=== PATIENT | male | born 1945 | race Caucasian/White ===

== ENCOUNTER 2016-09-07 17:14 | Inpatient (IN) | payer OTHER, MEDICARE ==
[~2016-09-07] VITALS: Ht 180.3 cm; Wt 77.1 kg
--- NOTE | 2016-09-07 17:25 | NUR ---
PT TO ED FOR 30 MIN OF SEVERE CHEST PRESSURE AND DIAPHORESIS, STATING HE WAS SITTING AT A LECTURE AND FELT A SUDDEN ONSET OF CHEST PRESSURE AND BEGAN TO HAVE COLD SWEATS. ON ARRIVAL TO ED CP 09/20 AND "IMPROVING" DENIES ANY ASSOCIATED SOB, ANAND. STATING HE HAS A HX OF "A VERY SLIGHT MITRAL VALVE REGURG". PT STATING HE WORKED OUT HARDER THAN NORMAL THIS AM WELL DRANK MORE ESPRESSO THAN NORMAL.
--- NOTE | 2016-09-07 17:30 | ED GENERAL ADULT ---
History of Present Illness General Chief Complaint: Chest Pain Stated Complaint: CHEST PAIN Source: patient Exam Limitations: no limitations Vital Signs & Intake/Output Vital Signs & Intake/Output Vital Signs Date Time Temp Pulse Resp B/P Pulse O2 O2 Flow FiO2 Ox Delivery Rate 09/07 2036 99.1 58 16 130/71 97 Room Air 09/07 1902 60 16 104/66 98 Room Air 09/07 1749 55 1 135/78 97 Room Air 09/07 1746 97 Room Air 09/07 1725 98.0 94 18 145/74 99 Room Air ED Intake and Output 09/08 0000 09/07 1200 Intake Total 0 Output Total Balance 0 Intake, Oral 0 Patient 160 lb Weight Allergies Coded Allergies: No Known Allergies (09/07/16) Reconcile Medications Ascorbic Acid (Vitamin C) (Unknown Strength) TABLET (Unknown Dose) PO DAILY SUPPLEMENT (Reported) Aspirin (Ecotrin*) 81 MG TABLET.DR 1 TAB PO DAILY HEART/BLOOD (Reported) Atorvastatin Calcium 20 MG TABLET 0.5 TAB PO DAILY CHOLESTEROL (Reported) Calcium Carbonate/Vitamin D3 (Calcium 500 + D Tablet) (Unknown Strength) TABLET (Unknown Dose) PO DAILY SUPPLEMENT (Reported) Gluc 2KCL/Chondr/Miguel Hy/Hy AC (Glucosamine & Chondroitin Cap) (Unknown Strength ) CAPSULE (Unknown Dose) PO BID SUPPLEMENT (Reported) Multivitamin (Daily Multiple Vitamin) 1 EACH TABLET 1 TAB PO DAILY SUPPLEMENT (Reported) Omeprazole 20 MG CAPSULE.DR 1 CAP PO DAILY GI (Reported) Triage Note: PT TO ED FOR 30 MIN OF SEVERE CHEST PRESSURE AND DIAPHORESIS, STATING HE WAS SITTING AT A LECTURE AND FELT A SUDDEN ONSET OF CHEST PRESSURE AND BEGAN TO HAVE COLD SWEATS. ON ARRIVAL TO ED CP 09/20 AND "IMPROVING" DENIES ANY ASSOCIATED SOB, ANAND. STATING HE HAS A HX OF "A VERY SLIGHT MITRAL VALVE REGURG". PT STATING HE WORKED OUT HARDER THAN NORMAL THIS AM WELL DRANK MORE ESPRESSO THAN NORMAL. Triage Nurses Notes Reviewed? yes Onset: Abrupt Duration: hour(s): Timing: recent history HPI: 6:22 PM 70-year-old man presents to the emergency department for chest pain. The patient states he was in his usual state of health until earlier today approximately one hour prior to arrival he developed epigastric pain and chest pressure. He took aspirin and antacid with no relief. He says he has a history of GERD. His said he was profoundly diaphoretic, he has no shortness of breath, no fever, no cough, no other complaints The onset of the symptoms were abrupt, the duration was approximately one hour prior to arrival, the severity is significant; as his symptoms required him to come to the emergency department for care (TORRIE MCGREGOR DO) Past History Travel History Traveled to [place] past 21 day No Medical History Any Pertinent Medical History? see below for history Neurological: BELLS PALSY, MELENOMA Surgical History Surgical History: non-contributory, HERNIA REPAIR Family History Hx Contributory? No (TORRIE MCGREGOR DO) Review of Systems Review of Systems Constitutional: Denies: fever. EENTM: Denies: visual changes. Respiratory: Denies: short of breath. Cardiovascular: Reports: chest pain. GI: Denies: abdominal pain. Genitourinary: Reports: no symptoms. Musculoskeletal: Reports: no symptoms. Skin: Reports: no symptoms. Neurological/Psychological: Reports: other (BELLS PALSY OLD). Hematologic/Endocrine: Reports: no symptoms. Immunologic/Allergic: Reports: no symptoms. (TORRIE MCGREGOR DO) Physical Exam Physical Exam General Appearance: well developed/nourished, alert, awake, anxious, mild distress Head: atraumatic, slight right-sided facial droop old Eyes: Bilateral: normal appearance, PERRL, EOMI. Ears, Nose, Throat: normal pharynx, normal ENT inspection Neck: normal inspection, supple Respiratory: chest non-tender, no respiratory distress Cardiovascular: regular rate/rhythm Peripheral Pulses: 4+ radial (R), 4+ radial (L) Gastrointestinal: soft, non-tender Back: normal range of motion Extremities: normal inspection, normal range of motion, no edema Neurologic/Psych: no motor/sensory deficits, awake, alert, oriented x 3 Skin: intact, normal color, warm/dry Core Measures ACS in differential dx? Yes ASA ordered for poss ACS? patient took 160 mg of aspirin prior to arrival CVA/TIA Diagnosis: No Severe Sepsis Present: No Septic Shock Present: No (TORRIE MCGREGOR DO) Progress Differential Diagnoses I considered the following diagnoses in my evaluation of the patient: [Acute coronary syndrome, pneumothorax, pulmonary embolism, costochondritis, gastroesophageal reflux, cholecystitis] Plan of Care: Orders Procedure Date/time Status Nothing by Mouth 09/08 B Active US-LIMITED ABDOMEN 09/08 0700 Active CBC WITHOUT DIFFERENTIAL 09/08 0600 Active BASIC ELECTROLYTES PLUS BUN&CR 09/08 0600 Active TROPONIN LEVEL 09/08 0000 Active EKG 09/08 0000 Active Nothing by Mouth 09/07 D Complete Pathway - chart 09/07 2201 Active Pathway - chart 09/07 2200 Active House Staff 09/07 220 Active Patient Data 09/07 220 Active Code Status 09/07 220 Active Patient Data 09/08 2107 Active Admit to inpatient 09/07 210 Active Vital Signs 09/07 2102 Active Code Status 09/07 2102 Complete Add-on Test (ER Only) 09/07 2025 Active EKG 09/07 1909 Active Telemetry/Jet Mechanic 09/07 1816 Active Intake & Output 09/07 1750 Active LIPID PANEL 09/07 1734 Complete LIPASE 09/07 1734 Complete AMYLASE 09/07 1734 Complete TROPONIN LEVEL 09/07 1729 Complete COMPREHENSIVE METABOLIC PANEL 09/07 1729 Complete CBC WITHOUT DIFFERENTIAL 09/07 1729 Complete EKG 09/07 1716 Active US-LIMITED ABDOMEN 09/07 UNK Active Lab Add-on Test 09/07 UNK Active VTE Mechanical Prophylaxis 09/07 UNK Active Current Medications Sig/Jamari Start time Last Medication Dose Stop Time Status Admin Enoxaparin Sodium 40 MG DAILY 09/08 1000 AC (Lovenox) Pantoprazole Sodium 40 MG DAILY 09/08 1000 AC (Protonix) Ondansetron HCl 4 MG Q6P PRN 09/07 2215 AC (Zofran) Morphine Sulfate 4 MG Q4P PRN 09/07 2200 AC (Morphine) Laboratory Tests 09/07/16 1734: Anion Gap 12, Estimated GFR > 60, BUN/Creatinine Ratio 20.9, Glucose 97, Calcium 9.4, Total Bilirubin 0.6, AST 130 H, ALT 88 H, Alkaline Phosphatase 84, Troponin I < 0.01, Total Protein 7.3, Albumin 4.4, Globulin 2.9, Albumin/ Globulin Ratio 1.5, Triglycerides 280 H, Cholesterol 168, LDL Cholesterol, Calc 66, HDL Cholesterol 46, Cholesterol/HDL Ratio 4, Amylase 984 H, Lipase 48779 H , CBC w Diff NO MAN DIFF REQ, RBC 4.59 L, MCV 95.1 H, MCH 31.0, RDW 14.5, MPV 8.5, Gran % 52.1, Lymphocytes % 37.8, Monocytes % 7.4, Eosinophils % 2.2, Basophils % 0.5, Absolute Granulocytes 5.6, Absolute Lymphocytes 4.1 H, Absolute Monocytes 0.8 H, Absolute Eosinophils 0.2, Absolute Basophils 0.1, PUBS MCHC 32.6 L 7:20 PM PATIENT SIGNED OUT TO ME BY DR MCGREGOR. PENDING CT ABDOMEN, REPEAT TROPONIN. (FELICITAS DELONG,TIP) Initial ED EKG: NSR (MECHE FRANKLIN,TORRIE Mock) Differential Diagnoses I considered the following diagnoses in my evaluation of the patient: [ PANCREATITS, MEDIACTION REACTION] Diagnostic Imaging: Viewed by Me: CT Scan. Discussed w/RAD: CT Scan. Radiology Impression: PATIENT: ORLANDO SLADE PRESENT AGE: 70 PATIENT ACCOUNT NO: [id number] : 45 LOCATION: [facility] ORDERING PHYSICIAN: TORRIE MCGREGOR DO SERVICE DATE: 09/07/16 EXAM TYPE: CAT - CT ABD & PELVIS W/O IV CONTRAS EXAMINATION: CT ABDOMEN AND PELVIS WITHOUT CONTRAST CLINICAL INFORMATION: Abdominal pain COMPARISON: None TECHNIQUE: Multidetector volumetric imaging was performed from the superior aspect of the liver through the pubic symphysis. Sagittal and coronal reformatted images were obtained on the technologist's workstation. DLP: 290.87 mGy-cm FINDINGS: LUNG BASES: The visualized lung bases are unremarkable. LIVER, GALLBLADDER, AND BILIARY TREE: The liver is normal in size, shape, and attenuation. Subtle low- attenuation noted in the segment 6 right hepatic lobe measuring approximately 0.8 cm. It is too small to be accurately characterized. (Series 2 image 22) Biliary ductal dilatation is present. The gallbladder is unremarkable with no evidence of radiopaque gallstones, gallbladder wall thickening, or obvious pericholecystic inflammatory changes. PANCREAS: Diffuse peripancreatic stranding and edema. Trace fluid. Findings are consistent with acute pancreatitis. Clinical and laboratory correlation recommended. SPLEEN: Unremarkable. ADRENAL GLANDS: Unremarkable. KIDNEYS AND URETERS: Slightly lobulated kidneys noted bilaterally. No evidence of stones. There is no hydronephrosis. BLADDER: Unremarkable. GASTROINTESTINAL TRACT: Edema and stranding also surrounding the stomach and duodenum. Colonic diverticulosis. Small hiatal hernia. Left inguinal hernia with herniated loop of distal descending colon. Herniated loop does not demonstrate abnormal wall thickness. No evidence of abnormal fluid collection associated with the herniated loop.. ABDOMINAL WALL: Left inguinal hernia containing loop of distal descending colon. LYMPH NODES: No evidence of lymphadenopathy. Small lymph nodes identified in the mesentery VASCULAR: Atherosclerotic disease of the aorta and aortic branches. PELVIC VISCERA: Unremarkable. OSSEOUS STRUCTURES: Degenerative changes bilateral hips, left greater than right. Degenerative changes lower lumbar spine. Scoliosis of the lumbar spine. Osseous lucency noted in the posterior right iliac bone adjacent to the SI joint. No obvious overlying cortical break. Differential possibility includes hemangioma. Lytic lesion cannot be entirely excluded. IMPRESSION: 1. CT findings suspicious for acute pancreatitis. Clinical and laboratory correlation recommended. No gross evidence of choledocholithiasis. Evaluation of the pancreatic parenchyma is limited without intravenous contrast enhancement. 2. Nonspecific low-attenuation right hepatic lesion may represent a small cyst. It is too small to be accurately characterized. 3. Small hiatal hernia. Left inguinal hernia containing loop of distal descending colon. No evidence of strangulation. 4. Probable bone hemangioma right posterior iliac bone. Lytic bony lesion cannot be entirely excluded. Findings were discussed with GEORGE Jackson at 8:24 PM on 09/07/2016. DICTATED BY: MARISOL FORDE MD DATE/TIME DICTATED:09/07/162015 TENNIS CAMP INSTRUCTOR:JUAN DATE/TIME TRANSCRIBED:2015 CONFIDENTIAL, DO NOT COPY WITHOUT APPROPRIATE AUTHORIZATION. < Electronically signed in Other Vendor System> SIGNED BY: MARISOL FORDE MD 09/07/162031 (TIP KANG MD) Departure Departure Disposition: STILL A PATIENT Condition: Stable Departure Forms: Customer Survey General Discharge Information Comments 09/07/16 7 PM The patient's initial troponin and EKG were normal. I discussed the case with Dr. Wade, was in agreement with the plan. We'll do 2 sets of troponins, repeat EKG. If pain free the patient may be discharged with follow-up. The patient had complained of epigastric pain and belching CT scan of the abdomen was ordered, repeat EKG was ordered. The patient was signed out to Dr. Kang for reevaluation and to follow the repeat troponin and EKG. Chest x-ray was negative PATIENT: ORLANDO SLADE PRESENT AGE: 70 PATIENT ACCOUNT NO: [id number] : 45 LOCATION: [facility] ORDERING PHYSICIAN: TORRIE MCGREGOR DO SERVICE DATE: 09/07/16-1829 EXAM TYPE: RAD - XRY-PORTABLE CHEST XRAY EXAMINATION: XR PORTABLE CHEST CLINICAL INFORMATION: Chest pain. COMPARISON: None TECHNIQUE: Portable AP view of the chest was obtained. FINDINGS: Cardiac leads overlie the chest. The lungs are well expanded. Mild elevation of the left hemidiaphragm. No consolidation, edema, or effusion. No pneumothorax. The cardiomediastinal silhouette is within normal limits. No acute osseous abnormalities. IMPRESSION: No acute pulmonary findings. DICTATED BY: JESUS BOCANEGRA MD DATE/TIME DICTATED:09/07/161857 TENNIS CAMP INSTRUCTOR:JUAN DATE/TIME TRANSCRIBED:09/07/161857 CONFIDENTIAL, DO NOT COPY WITHOUT APPROPRIATE AUTHORIZATION. <Electronically signed in Other Vendor System> SIGNED BY: JESUS BOCANEGRA MD 09/07 (TORRIE MCGREGOR DO) Departure Time of Disposition: 2102 Clinical Impression Primary Impression: Acute pancreatitis Admission Note Spoke With: JUAN DISLA MD Documentation of Exam: Documentation of any treatments & extenuating circumstances including Concerns Regarding Discharge (functional status, medication knowledge or non-compliance, living conditions, etc.) that warrant an admission rather than observation: [NPO , IV FLUIDS, PAIN CONTROL, MONITOR I/O, MONITOR ELECTROLYTES, U/S GB, GI CONSULT (ADMIT TO [facility])] (FELICITAS DELONG,TIP) Critical Care Note Critical Care Note Critical Care Time: 30-74 min (TORRIE MCGREGOR DO)
--- NOTE | 2016-09-07 17:44 | NUR ---
LABS DRAWN AND SENT LAV,SST,BLUE TOP
[2016-09-07 17:46] LABS: ABSOLUTE BASOPHIL COUNT 0.1 /CUMM (0.0-0.2); ABSOLUTE EOSINOPHIL COUNT 0.2 /CUMM (0.0-0.7); ABSOLUTE GRANULOCYTE CT 5.6 /CUMM (1.4-6.5); ABSOLUTE MONOCYTE COUNT 0.8 /CUMM (0.10-0.60); BASOPHIL % 0.5 % (0.0-2.0); EOSINOPHIL % 2.2 % (0-5); GRANULOCYTE % 52.1 % (42.2-75.2); HEMATOCRIT 43.6 % (42-52); MEAN CORPUSCULAR HGB CONC 32.6 G/DL (33.0-37.0); MEAN CORPUSCULAR VOLUME 95.1 FL (80.0-94.0); MEAN PLATELET VOLUME 8.5 FL (7.4-10.4); PLATELET COUNT 146 /CUMM (130-400); RBC DISTRIBUTION WIDTH 14.5 % (11.5-14.5); RED BLOOD CELL CT 4.59 /CUMM (4.70-6.10); WHITE BLOOD CELL COUNT 10.7 /CUMM (4.8-10.8)
[2016-09-07 17:49] LABS: ABSOLUTE LYMPH COUNT 4.1 /CUMM (1.2-3.4)
[2016-09-07] MEDS ORDERED: OMEPRAZOLE20 M2 PO (18:16)
[2016-09-07] MEDS ORDERED: VITAMIN C250 M3 PO (18:17)
[2016-09-07] MEDS ORDERED: GLUCOSAMINE &1 EAC1 PO (18:17)
[2016-09-07] MEDS ORDERED: ASPIRIN EC81 M1 PO (18:17)
[2016-09-07] MEDS ORDERED: ATORVASTATIN CA20 M1 PO (18:17)
[2016-09-07] MEDS ORDERED: DAILY MULTIPLE1 EACH PO (18:18)
[2016-09-07] MEDS ORDERED: CALCIUM 500 +1 EAC5 PO (18:18)
--- NOTE | 2016-09-07 19:04 | RADIOLOGY REPORT ---
EXAMINATION: XR PORTABLE CHEST CLINICAL INFORMATION: Chest pain. COMPARISON: None TECHNIQUE: Portable AP view of the chest was obtained. FINDINGS: Cardiac leads overlie the chest. The lungs are well expanded. Mild elevation of the left hemidiaphragm. No consolidation, edema, or effusion. No pneumothorax. The cardiomediastinal silhouette is within normal limits. No acute osseous abnormalities. IMPRESSION: No acute pulmonary findings.
--- NOTE | 2016-09-07 19:44 | NUR ---
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
--- NOTE | 2016-09-07 20:32 | CT SCAN REPORT ---
EXAMINATION: CT ABDOMEN AND PELVIS WITHOUT CONTRAST CLINICAL INFORMATION: Abdominal pain COMPARISON: None TECHNIQUE: Multidetector volumetric imaging was performed from the superior aspect of the liver through the pubic symphysis. Sagittal and coronal reformatted images were obtained on the technologist's workstation. DLP: 290.87 mGy-cm FINDINGS: LUNG BASES: The visualized lung bases are unremarkable. LIVER, GALLBLADDER, AND BILIARY TREE: The liver is normal in size, shape, and attenuation. Subtle low-attenuation noted in the segment 6 right hepatic lobe measuring approximately 0.8 cm. It is too small to be accurately characterized. (Series 2 image 22) Biliary ductal dilatation is present. The gallbladder is unremarkable with no evidence of radiopaque gallstones, gallbladder wall thickening, or obvious pericholecystic inflammatory changes. PANCREAS: Diffuse peripancreatic stranding and edema. Trace fluid. Findings are consistent with acute pancreatitis. Clinical and laboratory correlation recommended. SPLEEN: Unremarkable. ADRENAL GLANDS: Unremarkable. KIDNEYS AND URETERS: Slightly lobulated kidneys noted bilaterally. No evidence of stones. There is no hydronephrosis. BLADDER: Unremarkable. GASTROINTESTINAL TRACT: Edema and stranding also surrounding the stomach and duodenum. Colonic diverticulosis. Small hiatal hernia. Left inguinal hernia with herniated loop of distal descending colon. Herniated loop does not demonstrate abnormal wall thickness. No evidence of abnormal fluid collection associated with the herniated loop.. ABDOMINAL WALL: Left inguinal hernia containing loop of distal descending colon. LYMPH NODES: No evidence of lymphadenopathy. Small lymph nodes identified in the mesentery VASCULAR: Atherosclerotic disease of the aorta and aortic branches. PELVIC VISCERA: Unremarkable. OSSEOUS STRUCTURES: Degenerative changes bilateral hips, left greater than right. Degenerative changes lower lumbar spine. Scoliosis of the lumbar spine. Osseous lucency noted in the posterior right iliac bone adjacent to the SI joint. No obvious overlying cortical break. Differential possibility includes hemangioma. Lytic lesion cannot be entirely excluded. IMPRESSION: 1. CT findings suspicious for acute pancreatitis. Clinical and laboratory correlation recommended. No gross evidence of choledocholithiasis. Evaluation of the pancreatic parenchyma is limited without intravenous contrast enhancement. 2. Nonspecific low-attenuation right hepatic lesion may represent a small cyst. It is too small to be accurately characterized. 3. Small hiatal hernia. Left inguinal hernia containing loop of distal descending colon. No evidence of strangulation. 4. Probable bone hemangioma right posterior iliac bone. Lytic bony lesion cannot be entirely excluded. Findings were discussed with GEORGE Jackson at 8:24 PM on 09/07/2016.
--- NOTE | 2016-09-07 20:36 | NUR ---
PT CONTINUES TO C/O BELCHING WITH NO CHEST PAIN. PT STATES HIS STOMACH FEELS DISTENDED
--- NOTE | 2016-09-07 20:44 | NUR ---
PT STATES HE IS NOW EXPERIENCING PAIN AND IT IS TRAVELING LOWER IN HIS ABDOMEN
--- NOTE | 2016-09-07 21:07 | NUR ---
MEDICATED WITH 4MG MORPHINE
--- NOTE | 2016-09-07 21:25 | History & Physical ---
MARLENY DELONG,[facility] 09/07/162123: General Information and HPI MD Statement: I have seen and personally examined ORLANDO SLADE and documented this H&P. The patient is a 70 year old M who presented with a patient stated chief complaint of [chest pressure and cold sweats]. Source of Information: patient, family Exam Limitations: no limitations History of Present Illness: Patient is a 70 year old gentleman with PMH of HLD, GERD and ospteopenia, who came to the ED due to sudden onset of feeling pressure in the chest around 4:15 pm today. Patient reports he took x3 more coffee than his usual (his usual is 3 shots of espressos). 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 pain gradually progressed to the severity of 6-7/10 and lasted about total of 30 minutes. Denied nausea at that time, he took two aspirins regular doses and a dose of Pepcid Complete on his way to the hospital. His pain gradually decreased to 4/10 when he arrived in the ED. Also the location of the pain has moved down to the epigastric area. Since about 8-9 pm he also has been having nausea and reported one time vomiting, small amount, with no blood. Patient denies dizziness, SOB, palpitation, fever chills, urinary symptoms or changes in the stool. Patient reports he eats healthy food and avoids fatty meals such as burgers. He has a history of HLD on low dose Atorvastatin, his PCP wanted to take him off of it but recently he had mild elevation of TG (not know the number) and therefore he was continued on the statin. Denies heavy alcohol intake or smoking. Allergies/Medications Allergies: Coded Allergies: No Known Allergies (09/07/16) Home Med list Ascorbic Acid (Vitamin C) (Unknown Strength) TABLET (Unknown Dose) PO DAILY SUPPLEMENT (Reported) Aspirin (Ecotrin*) 81 MG TABLET. 1 TAB PO DAILY HEART/BLOOD (Reported) Atorvastatin Calcium 20 MG TABLET 0.5 TAB PO DAILY CHOLESTEROL (Reported) Calcium Carbonate/Vitamin D3 (Calcium 500 + D Tablet) (Unknown Strength) TABLET (Unknown Dose) PO DAILY SUPPLEMENT (Reported) Gluc 2KCL/Chondr/Miguel Hy/Hy AC (Glucosamine & Chondroitin Cap) (Unknown Strength ) CAPSULE (Unknown Dose) PO BID SUPPLEMENT (Reported) Multivitamin (Daily Multiple Vitamin) 1 EACH TABLET 1 TAB PO DAILY SUPPLEMENT (Reported) Omeprazole 20 MG CAPSULE. 1 CAP PO DAILY GI (Reported) Past History Travel History Traveled to [place] past 21 day No Medical History Neurological: BELLS PALSY , MELENOMA EENT: NONE Cardiovascular: hyperlipidemia Respiratory: NONE Gastrointestinal: GERD, Stoll's esophagus Hepatic: NONE Renal: NONE Musculoskeletal: hammer toe, osteopenia Psychiatric: NONE Endocrine: NONE Blood Disorders: NONE Cancer(s): NONE CHANGE MANAGEMENT/Reproductive: NONE Surgical History Surgical History: non-contributory, HERNIA REPAIR, meniscus tear of the left knee Past Family/Social History Psychosocial History Smoking Status: Never Smoked ETOH Use: occasional use Illicit Drug Use: denies illicit drug use Living Will? yes Functional Ability ADLs Independent: dressing, eating, toileting, bathing. Ambulation: independent Review of Systems Review of Systems Constitutional: Denies: chills, fever, weakness. EENTM: Denies: blurred vision. Cardiovascular: Denies: chest pain (currently no CP), edema, palpitations, peripheral edema. Respiratory: Denies: cough, short of breath, sputum production. GI: Reports: abdominal pain (epigastric). Genitourinary: Reports: no symptoms. Musculoskeletal: Reports: joint pain (occasional knee pain Left side). Skin: Reports: lesions (biopsied on the L and R chest). Neurological/Psychological: Denies: headache, numbness, weakness. Hematologic/Endocrine: Reports: no symptoms. Exam & Diagnostic Data Last 24 Hrs of Vital Signs/I&O Vital Signs Date Time Temp Pulse Resp B/P Pulse O2 O2 Flow FiO2 Ox Delivery Rate 09/07 2036 99.1 58 16 130/71 97 Room Air 09/07 1902 60 16 104/66 98 Room Air 09/07 1749 55 1 135/78 97 Room Air 09/07 1746 97 Room Air 09/07 1725 98.0 94 18 145/74 99 Room Air Physical Exam General Appearance Alert, Oriented X3, Cooperative, No Acute Distress Skin there is a papillomatous skin lesion on the left side of the chest, round and symmetric, Keloid like, from a previous biopsy, another area covered with bandage on the right side of the chest that was recently biopsied. HEENT Atraumatic, PERRLA, EOMI, Mucous Membr. 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 Neck Supple, No JVD Cardiovascular Regular Rate, Normal S1, Normal S2, 2/6 systolic murmur best heard in the aortic area Lungs Clear to Auscultation, Normal Air Movement Abdomen Soft, tenderness in the RUQ and epigaster Neurological Normal Speech, Normal Tone, right sided facial droop, hx of Betancourt's palsy Extremities No Edema, Normal Pulses Vascular Pulses Symmetrical Last 24 Hrs of Labs/Paul: Laboratory Tests 09/07/16 1734: Anion Gap 12, Estimated GFR > 60, BUN/Creatinine Ratio 20.9, Glucose 97, Calcium 9.4, Total Bilirubin 0.6, AST 130 H, ALT 88 H, Alkaline Phosphatase 84, Troponin I < 0.01, Total Protein 7.3, Albumin 4.4, Globulin 2.9, Albumin/ Globulin Ratio 1.5, Triglycerides 280 H, Cholesterol 168, LDL Cholesterol, Calc 66, HDL Cholesterol 46, Cholesterol/HDL Ratio 4, Amylase 984 H, Lipase 45458 H , CBC w Diff NO MAN DIFF REQ, RBC 4.59 L, MCV 95.1 H, MCH 31.0, RDW 14.5, MPV 8.5, Gran % 52.1, Lymphocytes % 37.8, Monocytes % 7.4, Eosinophils % 2.2, Basophils % 0.5, Absolute Granulocytes 5.6, Absolute Lymphocytes 4.1 H, Absolute Monocytes 0.8 H, Absolute Eosinophils 0.2, Absolute Basophils 0.1, PUBS MCHC 32.6 L Assessment/Plan Assessment: Patient is a 70 year old Male with a history of HLD, GERD, Stoll's esophagus, reported osteopenia, melanoma s/p excision (follows up with a activity coordinator), who came to the ED after experiencing sudden onset chest pressure and diaphoresis. Work up in the ED showed elevated amylase and lipase and an evidence of pancreatitis in the Abdominal CT scan. Patient is admitted to the [facility] floor for acute pancreatitis. problem list and plan; Chest pressure and diaphoresis Lower chest pain improved by the time patient came to the ED and pain moved down to the epigastric area. Physical exam was significant for systolic murmur in the aortic area. EKG showed sinus rythm and no acute ST and T changes. Troponin negative. * repeat troponin and EKG at midnight * consider ECHO Pancreatitis Patient reported epigastric pain and nausea later in the ED. He also reports recent history of elevated TG. Denies heavy alcohol use, smoking and eating heavy meals. Exam revealed RUQ tenderness. CT of the abdomen: Diffuse peripancreatic stranding and edema. Trace fluid. Findings are consistent with acute pancreatitis. There is edema and stranding also surrounding the stomach and duodenum. Colonic diverticulosis. Biliary ductal dilatation is present. The gallbladder is unremarkable with no evidence of radiopaque gallstones, gallbladder wall thickening, or obvious pericholecystic inflammatory changes. * Ringer's lactate * NPO * Zofran PRN for nausea * RUQ US * Repeat amylase and lipase in am HLD * repeat lipid profile * Hold statin History of GERD and Stoll's esophagus * IV protonix Pain * morphine sulfate 4 mg Q4 PRN DVT px * Lovenox FC As Ranked By This Provider Problem List: 1. Acute pancreatitis 2. Chest pain Core Measures/Miscellaneous Acute Coronary Syndrome ACS Diagnosis: No Cerebrovascular Accident CVA/TIA Diagnosis: No Congestive Heart Failure CHF Diagnosis: No Venous Thromboembolism VTE Risk Factors: Acute medical illness, Age > 40 No [facility] VTE prophylaxis d/t: No contraindications No VTE Pharm Prophylaxis d/t: No contraindications VTE Diagnosis: No VTE Type: NONE VTE Confirmed by (Test): NONE Severe Sepsis Severe Sepsis Present: No Septic Shock Septic Shock Present: No Miscellaneous Documentation Attending Case Discussed With: NIGHAT DELONG,JUAN Marmolejo Primary Care Physician: Dr. Dameon Nova Patient sees these Specialists GI: Dr. Mj Mckenzie Launch Check Out: Dr. Caldera Surgery: Dr. Piña Level of Patient Care: Telemetry KODY DELONG,[facility] 09/07/16 2348: Resident Review Statement Resident Statement: examined this patient, discussed with r d internship, agreed with r d internship Other Findings: 70 y/o M with PMH of Stoll's Esophagus (stable, last endoscopy 2 years ago), HLD, Osteopenia (last DEXA <1 yr ago), Melanoma s/p excision who presents to the ED with midsternal chest pressure, which moved lower to the abdomen. 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 He immediately rushed to the hospital because he thought he had a heart attack. He reports having 3 shots espresso x 2 , chocolate candy and a regular coffeee today, which is 3x his normal intake. The pressure came on suddenly and increased to 6/10. He took Aspirin 81 mg x2 and [address] on his way to the ED. He denies any palpitation, lightheadedness, dizziness, abdominal pain, nausea or vomiting before he came to the ED. He was diagnosed with Stoll's esophagus 5 years ago, by his facility engineer in [facility] and has been following up with him since then. He denies ETOH intake. He does have a history of hyperlipidemia and has been on a statin for that. His last lipid panel done < 1 yr ago, showed elevated TG levels and he was asked to continue his statin. In the ED, his pain migrated to his lower abdomen and he began to retch. CAT scan of the abdomen showed the presence of diffuse peripancreatic stranding and edema with trace fluid. It also showed the presence of a low attenuation lesion noted in the right hepatic lobe and no stones in the GB or obvious pericholecystic changes. Edema and stranding was also noted surrounding the stomach [place] [address]. Vitals: Afebrile, 55-94 HR, 104/66-145/74, 97-98% Physical Exam: AAOx3 S1S2, RRR BCTA Neurologically intact Abdomen: Tendernes present most in the RLQ, but also present all over the abdomen. Bowel sound sluggish. Rebound tenderness could not be assessed as the patient was not cooperative. Labs: BUN: 23, Lipase: 70135, AT: 130, ALT: 88 Imaging: CT of the abdomen and Pelvis without contrast showed: presence of diffuse peripancreatic stranding and edema with trace fluid. It also showed the presence of a low attenuation lesion noted in the right hepatic lobe and no stones in the GB or obvious pericholecystic changes. Edema and stranding was also noted surrounding the stomach and the duodenum. CXR: No Pleural effusions Patient is to be admitted to for acute pancreatitis of currently unknown etiology. BISAP score is 1. NPO for now. RL at 175 ml/hr x 5L, Morphine for pain , Zofran for nausea and Protonix IV. RUQ USG in the AM to r/o choledocholithiasis. Check Lipid panel. Repeat another trop and EKG to r/o possible cardiac related disease. DVT PPx: SubQ Lovenox. Code Status: Full Code. RONNIE PEREIRA MD 09/08/16 0855: Attending MD Review Statement Attending Statement Attending MD Statement: examined this patient, discuss w/resident/PA/ARMATURE WINDER REPAIR HELPER, agreed w/resident/PA/ARMATURE WINDER REPAIR HELPER, discussed with family, reviewed EMR data (avail), discussed with nursing
--- NOTE | 2016-09-07 21:33 | NUR ---
HOUSE STAFF AT BEDSIDE
--- NOTE | 2016-09-07 23:03 | NUR ---
BED ASSIGNMENT 204-01
--- NOTE | 2016-09-07 23:37 | NUR ---
PTS SIGNIFICAN OTHER (HARDEEP) WOULD LIKE TO BE CALLED WITH ANY AND ALL UPDATES [phone]
--- NOTE | 2016-09-07 23:58 | NUR ---
REPORT CALLED TO JODY DOMINGUEZ
[2016-09-08 00:32] VITALS: BP 138/78
--- NOTE | 2016-09-08 02:15 | NUR ---
PT ADMITTED FROM ER VIA STRECHER. ORIENTED TO ROOM, CALL JARA, STAFF, ETC. ALERT AND ORIENTED X 3. RA. NPO. DENIES PAIN. VSS. EKG AND TROPONIN DONE ORDERED. FLUIDS RUNNING. WILL CONTINUE TO MONITOR.
[2016-09-08 07:20] VITALS: BP 132/64
[2016-09-08 08:13] LABS: ABSOLUTE BASOPHIL COUNT 0 /CUMM (0.0-0.2); ABSOLUTE EOSINOPHIL COUNT 0 /CUMM (0.0-0.7); ABSOLUTE GRANULOCYTE CT 7.9 /CUMM (1.4-6.5); ABSOLUTE MONOCYTE COUNT 0.7 /CUMM (0.10-0.60); BASOPHIL % 0 % (0.0-2.0); EOSINOPHIL % 0.2 % (0-5); GRANULOCYTE % 74.3 % (42.2-75.2); HEMATOCRIT 39.1 % (42-52); MEAN CORPUSCULAR HGB 31.2 PG (27.0-31.0); MEAN CORPUSCULAR VOLUME 94.4 FL (80.0-94.0); PLATELET COUNT 114 /CUMM (130-400); RBC DISTRIBUTION WIDTH 14.5 % (11.5-14.5); RED BLOOD CELL CT 4.14 /CUMM (4.70-6.10); WHITE BLOOD CELL COUNT 10.6 /CUMM (4.8-10.8)
--- NOTE | 2016-09-08 08:52 | NUR ---
NURSING NOTE: PATIENT TO US VIA STRETCHER AT THIS TIME. NPO, A&OX3, STABLE ON ROOM AIR, DENIES PAIN AT THIS TIME. AWAIT RETURN TO FLOOR.
--- NOTE | 2016-09-08 08:55 | Admission Certification ---
Admission Certification Certification Statement - As attending physician, I certify that at the time of - admission, based on clinical presentation, severity of - symptoms, need for further diagnostic testing and - therapeutic interventions, and risk of adverse outcomes - without in-hospital treatment, in my clinical assessment, - this patient requires an acute hospital stay for a minimum - of two nights or longer. I have also considered psychsocial - factors such as support system, advanced age, financial - issues, cognitive issues, and failed out-patient treatments, - past re-admission history, safety of patient, and lack of - compliance as applicable. Specific rationale supporting this admission is: Acute pancreatitis
--- NOTE | 2016-09-08 08:55 | PN- Att Addend ---
Attending Addendum Attending Brief Note Patient complains of persistent abdominal discomfort General Appearance: Alert, No Acute Distress Skin: Grossly normal HEENT: PEERLA Neck: Supple, No JVD Cardiovascular: Regular Rate, Normal S1, Normal S2, No Murmurs Lungs: Clear to Auscultation, Normal Air Movement Abdomen: Generalized Tenderness, positive bowel sounds Neurological: Normal Speech, Strength at 5/5 X4 Ext, Cranial Nerves 3-12 NL, Reflexes 2+ Extremities: No Clubbing, No Cyanosis, No Edema Vascular: Normal Pulses Assessment 70-year-old history of dyslipidemia, GERD, osteopenia presenting with complaints of chest discomfort and sweating. Patient seldom drinks and is nonsmoker. CAT scan suggested acute pancreatitis without evidence of gallstones. He has first episode of acute pancreatitis without obvious cause. At this point ultrasound liver is pending. Plan Keep nothing by mouth Continue current IV fluids Ultrasound right upper quadrant Morphine for pain DVT prophylaxis Current Medications Sig/Jamari Start time Last Medication Dose Route Stop Time Status Admin Enoxaparin Sodium 40 MG DAILY 09/08 1000 AC 09/08 SC 0835 Hydromorphone HCl 1 MG ONCE ONE 09/07 2244 DC 09/07 IV 09/07 Hydromorphone HCl 0 .STK-MED ONE 09/07 2212 DC .ROUTE Lactated Ringer's 1,000 ML .[id number] 09/07 2214 AC 09/08 IV 09/09 0249 0339 Morphine Sulfate 4 MG Q4P PRN 09/07 2200 AC 09/08 IV 0356 Morphine Sulfate 0 .STK-MED ONE 09/07 2102 DC .ROUTE Morphine Sulfate 4 MG ONCE ONE 09/07 2100 DC 09/07 IV 09/07 2100 210 Nitroglycerin 0 .STK-MED ONE 09/07 1901 DC SL Nitroglycerin 0.4 MG ONCE ONE 09/07 1830 DC SL 09/07 1831 Ondansetron HCl 4 MG Q6P PRN 09/07 2215 AC IV Ondansetron HCl 4 MG ONCE ONE 09/07 2045 DC 09/07 IV 09/07 Ondansetron HCl 0 .STK-MED ONE 09/08 2043 DC .ROUTE Pantoprazole Sodium 40 MG DAILY 09/08 1000 AC 09/08 IV 0836 Pantoprazole Sodium 40 MG ONCE ONE 09/07 1915 DC 09/07 IV 09/07 Pantoprazole Sodium 0 .STK-MED ONE 09/08 1911 DC IV Sodium Chloride 1,000 ML ONCE ONE 09/07 1914 DC 09/07 IV 09/084 1907 Laboratory Tests 09/08 09/08 0605 0110 Chemistry Sodium (137 - 145 mmol/L) 134 L Potassium (3.5 - 5.1 mmol/L) 4.2 Chloride (98 - 107 mmol/L) 102 Carbon Dioxide (22 - 30 mmol/L) 26 Anion Gap (5 - 16) 6 BUN (9 - 20 mg/dL) 18 Creatinine (0.7 - 1.2 mg/dL) 0.8 Estimated GFR (>60 ml/min) > 60 BUN/Creatinine Ratio (7 - 25 %) 22.5 Troponin I (<0.11 ng/ml) < 0.01 Hematology CBC w Diff NO MAN DIFF REQ WBC (4.8 - 10.8 /CUMM) 10.6 RBC (4.70 - 6.10 /CUMM) 4.14 L Hgb (14.0 - 18.0 G/DL) 12.9 L Hct (42 - 52 %) 39.1 L MCV (80.0 - 94.0 FL) 94.4 H MCH (27.0 - 31.0 PG) 31.2 H RDW (11.5 - 14.5 %) 14.5 Plt Count (130 - 400 /CUMM) 114 L MPV (7.4 - 10.4 FL) 9.0 Gran % (42.2 - 75.2 %) 74.3 Lymphocytes % (20.5 - 51.1 %) 19.1 L Monocytes % (1.7 - 9.3 %) 6.4 Eosinophils % (0 - 5 %) 0.2 Basophils % (0.0 - 2.0 %) 0 L Absolute Granulocytes (1.4 - 6.5 /CUMM) 7.9 H Absolute Lymphocytes (1.2 - 3.4 /CUMM) 2.0 Absolute Monocytes (0.10 - 0.60 /CUMM) 0.7 H Absolute Eosinophils (0.0 - 0.7 /CUMM) 0 Absolute Basophils (0.0 - 0.2 /CUMM) 0 PUBS MCHC (33.0 - 37.0 G/DL) 33.0 09/07 1734 Chemistry Sodium (137 - 145 mmol/L) 141 Potassium (3.5 - 5.1 mmol/L) 3.7 Chloride (98 - 107 mmol/L) 99 Carbon Dioxide (22 - 30 mmol/L) 31 H Anion Gap (5 - 16) 12 BUN (9 - 20 mg/dL) 23 H Creatinine (0.7 - 1.2 mg/dL) 1.1 Estimated GFR (>60 ml/min) > 60 BUN/Creatinine Ratio (7 - 25 %) 20.9 Glucose (65 - 99 mg/dL) 97 Calcium (8.4 - 10.2 mg/dL) 9.4 Total Bilirubin (0.2 - 1.3 mg/dL) 0.6 AST (17 - 59 U/L) 130 H ALT (21 - 72 U/L) 88 H Alkaline Phosphatase (< 127 U/L) 84 Troponin I (<0.11 ng/ml) < 0.01 Total Protein (6.3 - 8.2 g/dL) 7.3 Albumin (3.5 - 5.0 g/dL) 4.4 Globulin (1.9 - 4.2 gm/dL) 2.9 Albumin/Globulin Ratio (1.1 - 2.2 %) 1.5 Triglycerides (<150 mg/dL) 280 H Cholesterol (< 200 MG/DL) 168 LDL Cholesterol, Calc (65 - 129 mg/dL) 66 HDL Cholesterol (40 - 60 mg/dL) 46 Cholesterol/HDL Ratio (0.00 - 4.88 %) 4 Amylase (30 - 110 U/L) 984 H Lipase (23 - 300 U/L) 35243 H Hematology CBC w Diff NO MAN DIFF REQ WBC (4.8 - 10.8 /CUMM) 10.7 RBC (4.70 - 6.10 /CUMM) 4.59 L Hgb (14.0 - 18.0 G/DL) 14.2 Hct (42 - 52 %) 43.6 MCV (80.0 - 94.0 FL) 95.1 H MCH (27.0 - 31.0 PG) 31.0 RDW (11.5 - 14.5 %) 14.5 Plt Count (130 - 400 /CUMM) 146 MPV (7.4 - 10.4 FL) 8.5 Gran % (42.2 - 75.2 %) 52.1 Lymphocytes % (20.5 - 51.1 %) 37.8 Monocytes % (1.7 - 9.3 %) 7.4 Eosinophils % (0 - 5 %) 2.2 Basophils % (0.0 - 2.0 %) 0.5 Absolute Granulocytes (1.4 - 6.5 /CUMM) 5.6 Absolute Lymphocytes (1.2 - 3.4 /CUMM) 4.1 H Absolute Monocytes (0.10 - 0.60 /CUMM) 0.8 H Absolute Eosinophils (0.0 - 0.7 /CUMM) 0.2 Absolute Basophils (0.0 - 0.2 /CUMM) 0.1 PUBS MCHC (33.0 - 37.0 G/DL) 32.6 L Vital Signs Date Time Temp Pulse Resp B/P Pulse O2 O2 Flow FiO2 Ox Delivery Rate 09/08 0720 98.5 69 18 132/64 97 Room Air 09/08 0032 98.7 68 18 138/78 96 Room Air 09/07 2037 99.1 58 16 130/71 97 Room Air 09/07 1902 60 16 104/66 98 Room Air 09/07 1749 55 1 135/78 97 Room Air 09/07 1746 97 Room Air 09/07 1725 98.0 94 18 145/74 99 Room Air
--- NOTE | 2016-09-08 09:35 | NUR ---
NURSING NOTE: PATIENT RETURNED TO ROOM AND SETTLED INTO BED. A&OX3, COMPLAINS OF "SINUS HEADACHE" AND DOES NOT WANT THE PRN MORHPINE ORDERED. CHAIR INSTALLER PAGED AND MADE AWARE; PATIENT UPDATED, NEEDS IN REACH. CONT TO MONITOR.
--- NOTE | 2016-09-08 10:17 | NUR ---
NURSING NOTE: TOOTH POLISHER TO DISCUSS WITH ATTENDING ON PAIN MED FOR SINUS PRESSURE, PT AND UPDATED, CONT TO GILMA
--- NOTE | 2016-09-08 11:05 | PN- Housestaff ---
Subjective Follow-up For: Pancreatitis Subjective: Patient is seen and examined bedside. Patient reports improvement by denying any overnight episode of nausea or vomiting, fever, chills or abdominal pain. No acute overnight event reported by nursing staff. Review of Systems Constitutional: Reports: no symptoms. Objective Last 24 Hrs of Vital Signs/I&O Vital Signs Date Time Temp Pulse Resp B/P Pulse O2 O2 Flow FiO2 Ox Delivery Rate 09/08 1418 98.4 62 18 140/84 95 Room Air 09/08 0720 98.5 69 18 132/64 97 Room Air 09/08 0032 98.7 68 18 138/78 96 Room Air 09/07 2037 99.1 58 16 130/71 97 Room Air 09/07 1902 60 16 104/66 98 Room Air 09/07 1749 55 1 135/78 97 Room Air 09/07 1746 97 Room Air Intake & Output 09/08 1600 09/08 0800 09/08 0000 Intake Total 1430 1225 0 Output Total 600 Balance 830 1225 0 Intake, IV 1430 1225 Intake, Oral 0 0 Number 0 Bowel Movements Output, Urine 600 Patient 77.111 kg 77.111 kg 72.575 kg Weight Physical Exam General Appearance: Alert, Oriented X3, Cooperative Assessment/Plan Assessment: Patient is a 70 year old Male with a history of HLD, GERD, Stoll's esophagus, reported osteopenia, melanoma s/p excision (follows up with a data processing clerk), who came to the ED after experiencing sudden onset chest pressure and diaphoresis. Work up in the ED showed elevated amylase and lipase and an evidence of pancreatitis in the Abdominal CT scan. Patient is admitted to the GM floor for acute pancreatitis. Assessment and plan Pancreatitis She presented with epigastric pain and had laboratory finding of markedly increased lipase and CT abdomen was remarkable for inflammatory changes on the pancreas. Patient is not an alcoholic and therefore possibility of gallstones was entertained with a right upper quadrant scan. However results were unremarkable therefore currently the etiology is unknown. We'll continue to have patient nothing by mouth with aggressive hydration and trend lipase will reevaluate tomorrow morning and consider slowly transitioning patient to a clear liquid diet. HLD * repeat lipid profile * Hold statin History of GERD and Stoll's esophagus * IV protonix Problem List: 1. Acute pancreatitis 2. Chest pain Pain Ratin Pain Location: None Pain Goal: Pain 4 or less Pain Plan: Per pain pathway Tomorrow's Labs & Rationales: Lipase-acute pancreatitis
--- NOTE | 2016-09-08 11:13 | ULTRASOUND REPORT ---
EXAMINATION: US ABDOMEN LIMITED CLINICAL INFORMATION: Acute pancreatitis with question of CBD stone. COMPARISON: CT scan yesterday. TECHNIQUE: Real-time imaging of the right upper quadrant abdominal viscera. FINDINGS: PANCREAS: The stranding and edema appreciated on yesterday's CT scan is not as evident on ultrasound. No pancreatic mass or pancreatic duct dilatation is seen. No peripancreatic fluid collections are seen. LIVER: The liver demonstrates normal size, contour and echogenicity. A small septated 1 cm hepatic cyst is noted. No focal solid lesion or intrahepatic biliary duct dilatation. GALLBLADDER: The gallbladder wall is 4 mm thick. No pericholecystic fluid collection is seen. The patient is not tender over the gallbladder. COMMON BILE DUCT: Normal in caliber measuring 0.32 cm in diameter. RIGHT KIDNEY: No hydronephrosis. No renal calculi or focal parenchymal lesions. The kidney measures 11.6 cm in maximum dimension. FREE FLUID: None. IMPRESSION: No peripancreatic fluid collection is seen. There is no cholelithiasis. There is no biliary ductal dilatation or common duct stone seen. Incidental note made of tiny hepatic cyst.
[2016-09-08 14:18] VITALS: BP 140/84
[2016-09-08 23:41] VITALS: BP 130/78
[2016-09-09 07:33] VITALS: BP 127/74
[2016-09-09 07:54] LABS: ABSOLUTE BASOPHIL COUNT 0 /CUMM (0.0-0.2); ABSOLUTE EOSINOPHIL COUNT 0.1 /CUMM (0.0-0.7); ABSOLUTE GRANULOCYTE CT 6.3 /CUMM (1.4-6.5); ABSOLUTE LYMPH COUNT 2.4 /CUMM (1.2-3.4); ABSOLUTE MONOCYTE COUNT 0.7 /CUMM (0.10-0.60); BASOPHIL % 0 % (0.0-2.0); EOSINOPHIL % 1.6 % (0-5); GRANULOCYTE % 66.3 % (42.2-75.2); HEMATOCRIT 38.9 % (42-52); MEAN CORPUSCULAR HGB 31.3 PG (27.0-31.0); MEAN CORPUSCULAR HGB CONC 32.9 G/DL (33.0-37.0); MEAN CORPUSCULAR VOLUME 95.1 FL (80.0-94.0); MEAN PLATELET VOLUME 9.4 FL (7.4-10.4); PLATELET COUNT 115 /CUMM (130-400); RBC DISTRIBUTION WIDTH 14.5 % (11.5-14.5); RED BLOOD CELL CT 4.09 /CUMM (4.70-6.10); WHITE BLOOD CELL COUNT 9.5 /CUMM (4.8-10.8)
--- NOTE | 2016-09-09 08:06 | PN- Housestaff ---
Subjective Follow-up For: Acute pancreatitis Subjective: Patient is seen and examined at bedside. Patient reports good improvement of her symptoms which included nausea and abdominal pain, he does not report any vomiting episodes. Patient is still on IV hydration and is reporting adequate output. He does deny any chest pain, palpitation, shortness of breath, dizziness, fever, chills, nausea, vomiting, abdominal pain or dysuria. No acute overnight event reported by nursing staff Review of Systems Constitutional: Reports: no symptoms. Objective Last 24 Hrs of Vital Signs/I&O Vital Signs Date Time Temp Pulse Resp B/P Pulse O2 O2 Flow FiO2 Ox Delivery Rate 09/09 1404 98.1 65 18 125/74 94 Room Air 09/09 0733 98.7 64 18 127/74 94 Room Air 09/08 2341 99.2 64 18 130/78 95 Room Air Intake & Output 09/09 1600 09/09 0800 09/09 0000 Intake Total 1400 1400 Output Total Balance 1400 1400 Intake, IV 1400 1400 Intake, Oral 0 0 Number 0 Bowel Movements Physical Exam General Appearance: Alert, Oriented X3, Cooperative Skin: No Significant Lesion HEENT: Atraumatic, Mucous Membr. 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 Work up in the ED showed elevated amylase and lipase and an evidence of pancreatitis in the Abdominal CT scan. Patient is admitted to the [facility] floor for acute pancreatitis. Assessment and plan Pancreatitis MarkeD improvement in symptoms with no reported nausea or vomiting for more than 24 hours. Diet advanced to clear liquids for lunch with patient reporting tolerating well with no episodes of nausea vomiting. Will advance diet to full liquids for dinner and decrease fluid resuscitation to 100 miles an hour for now. Ultrasound was unremarkable for any biliary pathology, therefore currently patient episode of acute pancreatitis has unclear etiology/ HLD * Hold statin the setting of elevated LFTs. History of GERD and Stoll's esophagus * IV protonix Problem List: 1. Acute pancreatitis Pain Ratin Pain Location: none Pain Goal: Remain pain free Pain Plan: per pain pathway Tomorrow's Labs & Rationales: BEP Tomorrow's Labs & Rationales: BEP
--- NOTE | 2016-09-09 09:03 | PN- Att Addend ---
Attending Addendum Attending Brief Note Patient reports improved abdominal discomfort General Appearance: Alert, No Acute Distress Skin: Grossly normal HEENT: PEERLA Neck: Supple, No JVD Cardiovascular: Regular Rate, Normal S1, Normal S2, No Murmurs Lungs: Clear to Auscultation, Normal Air Movement Abdomen: Generalized Tenderness, positive bowel sounds Neurological: Normal Speech, Strength at 5/5 X4 Ext, Cranial Nerves 3-12 NL, Reflexes 2+ Extremities: No Clubbing, No Cyanosis, No Edema Vascular: Normal Pulses Assessment 70-year-old history of dyslipidemia, GERD, osteopenia presenting with complaints of chest discomfort and sweating. Patient seldom drinks and is nonsmoker. CAT scan suggested acute pancreatitis without evidence of gallstones. He has his first episode of acute pancreatitis without obvious cause. Ultrasound right upper quadrant conforms no gallstones or dilated CBD. However patient has improved clinically and we will advance diet. Plan Start clears, advance to full liquids later today if patient tolerates Decrease IV fluids to 100 mL Morphine for pain DVT prophylaxis Current Medications Sig/Jamari Start time Last Medication Dose Route Stop Time Status Admin Enoxaparin Sodium 40 MG DAILY 09/08 1000 AC 09/08 SC 0835 Lactated Ringer's 1,000 ML .Q8H 09/07 2215 AC 09/09 IV 09/10 0723 0829 Morphine Sulfate 4 MG Q4P PRN 09/07 2200 AC 09/08 IV 0356 Ondansetron HCl 4 MG Q6P PRN 09/07 2215 AC IV Pantoprazole Sodium 40 MG DAILY 09/08 1000 AC 09/08 IV 0836 Patient Medication 1 ED .STK-MED ONE 09/08 1352 NC Teaching ED 09/08 1353 Tramadol HCl 50 MG ONCE ONE 09/08 1115 DC 09/08 PO 09/08 1116 1219 Laboratory Tests 09/09 0615 Chemistry Sodium (137 - 145 mmol/L) 137 Potassium (3.5 - 5.1 mmol/L) 3.7 Chloride (98 - 107 mmol/L) 101 Carbon Dioxide (22 - 30 mmol/L) 29 Anion Gap (5 - 16) 7 BUN (9 - 20 mg/dL) 10 Creatinine (0.7 - 1.2 mg/dL) 0.8 Estimated GFR (>60 ml/min) > 60 BUN/Creatinine Ratio (7 - 25 %) 12.5 Lipase (23 - 300 U/L) 1405 H Hematology CBC w Diff NO MAN DIFF REQ WBC (4.8 - 10.8 /CUMM) 9.5 RBC (4.70 - 6.10 /CUMM) 4.09 L Hgb (14.0 - 18.0 G/DL) 12.8 L Hct (42 - 52 %) 38.9 L MCV (80.0 - 94.0 FL) 95.1 H MCH (27.0 - 31.0 PG) 31.3 H RDW (11.5 - 14.5 %) 14.5 Plt Count (130 - 400 /CUMM) 115 L MPV (7.4 - 10.4 FL) 9.4 Gran % (42.2 - 75.2 %) 66.3 Lymphocytes % (20.5 - 51.1 %) 24.8 Monocytes % (1.7 - 9.3 %) 7.3 Eosinophils % (0 - 5 %) 1.6 Basophils % (0.0 - 2.0 %) 0 L Absolute Granulocytes (1.4 - 6.5 /CUMM) 6.3 Absolute Lymphocytes (1.2 - 3.4 /CUMM) 2.4 Absolute Monocytes (0.10 - 0.60 /CUMM) 0.7 H Absolute Eosinophils (0.0 - 0.7 /CUMM) 0.1 Absolute Basophils (0.0 - 0.2 /CUMM) 0 PUBS MCHC (33.0 - 37.0 G/DL) 32.9 L Vital Signs Date Time Temp Pulse Resp B/P Pulse O2 O2 Flow FiO2 Ox Delivery Rate 09/09 0733 98.7 64 18 127/74 94 Room Air 09/08 2341 99.2 64 18 130/78 95 Room Air 09/08 1418 98.4 62 18 140/84 95 Room Air
[2016-09-09 14:04] VITALS: BP 125/74
[2016-09-09 22:06] VITALS: BP 130/07
[2016-09-10 06:19] VITALS: BP 136/80
--- NOTE | 2016-09-10 07:39 | PN- Housestaff ---
Subjective Follow-up For: Acute pancreatitis Subjective: Patient is seen and examined at bedside. He is endorsing some mild diffuse abdominal pressure. However he denies any nausea, vomiting, and reports passing flatus, but no bowel movement yet. He does deny any chest pain, shortness of breath, dizziness, fever, chills, or dysuria. No acute overnight event reported by nursing staff. Review of Systems Constitutional: Reports: no symptoms. Objective Last 24 Hrs of Vital Signs/I&O .. Physical Exam General Appearance: Alert, Oriented X3, Cooperative Abdomen: Normal Bowel Sounds, Soft, No Tenderness, No Hepatospenomegaly, No Masses Current Medications: .. Last 24 Hrs of Lab/Paul Results Last 24 Hrs of Labs/Mics: ... 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 Work up in the ED showed elevated amylase and lipase and an evidence of pancreatitis in the Abdominal CT scan. Patient is admitted to the [facility] floor for acute pancreatitis. Assessment and plan Pancreatitis MarkeD improvement in symptoms with no reported nausea or vomiting for more than 24 hours. Diet advanced to clear liquids for lunch with patient reporting tolerating well with no episodes of nausea vomiting. Will advance diet to full liquids for dinner and decrease fluid resuscitation to 100 miles an hour for now. Ultrasound was unremarkable for any biliary pathology, therefore currently patient episode of acute pancreatitis has unclear etiology/ HLD * Hold statin the setting of elevated LFTs. History of GERD and Stoll's esophagus * IV protonix Problem List: 1. Acute pancreatitis Pain Ratin Pain Location: abdomen Pain Goal: Remain pain free Pain Plan: per pain pathway Tomorrow's Labs & Rationales: alisa-discharge
[2016-09-10 08:44] LABS: ABSOLUTE BASOPHIL COUNT 0 /CUMM (0.0-0.2); ABSOLUTE EOSINOPHIL COUNT 0.2 /CUMM (0.0-0.7); ABSOLUTE GRANULOCYTE CT 5.2 /CUMM (1.4-6.5); ABSOLUTE LYMPH COUNT 2.6 /CUMM (1.2-3.4); BASOPHIL % 0.3 % (0.0-2.0); EOSINOPHIL % 2.5 % (0-5); GRANULOCYTE % 57.6 % (42.2-75.2); HEMATOCRIT 38.6 % (42-52); MEAN CORPUSCULAR HGB 31.5 PG (27.0-31.0); MEAN CORPUSCULAR HGB CONC 33.2 G/DL (33.0-37.0); MEAN CORPUSCULAR VOLUME 95.1 FL (80.0-94.0); MEAN PLATELET VOLUME 9.4 FL (7.4-10.4); PLATELET COUNT 114 /CUMM (130-400); RBC DISTRIBUTION WIDTH 14.2 % (11.5-14.5); RED BLOOD CELL CT 4.06 /CUMM (4.70-6.10)
--- NOTE | 2016-09-10 09:39 | PN- Att Addend ---
Attending Addendum Attending Brief Note Patient reports abdominal discomfort this morning and relates it to constipation General Appearance: Alert, No Acute Distress Skin: Grossly normal HEENT: PEERLA Neck: Supple, No JVD Cardiovascular: Regular Rate, Normal S1, Normal S2, No Murmurs Lungs: Clear to Auscultation, Normal Air Movement Abdomen: Generalized Tenderness, positive bowel sounds Neurological: Normal Speech, Strength at 5/5 X4 Ext, Cranial Nerves 3-12 NL, Reflexes 2+ Extremities: No Clubbing, No Cyanosis, No Edema Vascular: Normal Pulses Assessment 70-year-old history of dyslipidemia, GERD, osteopenia presenting with complaints of chest discomfort and sweating. Patient seldom drinks and is nonsmoker. CAT scan suggested acute pancreatitis without evidence of gallstones. He has his first episode of acute pancreatitis without obvious cause. Ultrasound right upper quadrant conforms no gallstones or dilated CBD. Diet now advanced on full liquids. Has some abdominal discomfort might be secondary to constipation. We will continue full liquids and possibly discharge later today if tolerating diet without much worsening of abdominal pain. Plan Advance diet as tolerated Discontinue fluids Discontinue pain meds Colace for constipation May discharge later today if tolerating diet Current Medications Sig/Jamari Start time Last Medication Dose Route Stop Time Status Admin Enoxaparin Sodium 40 MG DAILY 09/08 1000 AC 09/10 SC 0753 Lactated Ringer's 1,000 ML .Q10H 09/07 2215 DC 09/10 IV 09/10 0723 0021 Morphine Sulfate 4 MG Q4P PRN 09/07 2200 AC 09/08 IV 0356 Ondansetron HCl 4 MG Q6P PRN 09/07 2215 AC IV Pantoprazole Sodium 40 MG DAILY 09/08 1000 AC 09/10 IV 0753 Laboratory Tests 09/10 0615 Chemistry Sodium (137 - 145 mmol/L) 136 L Potassium (3.5 - 5.1 mmol/L) 3.6 Chloride (98 - 107 mmol/L) 103 Carbon Dioxide (22 - 30 mmol/L) 28 Anion Gap (5 - 16) 5 BUN (9 - 20 mg/dL) 10 Creatinine (0.7 - 1.2 mg/dL) 0.8 Estimated GFR (>60 ml/min) > 60 BUN/Creatinine Ratio (7 - 25 %) 12.5 Hematology CBC w Diff NO MAN DIFF REQ WBC (4.8 - 10.8 /CUMM) 9.0 RBC (4.70 - 6.10 /CUMM) 4.06 L Hgb (14.0 - 18.0 G/DL) 12.8 L Hct (42 - 52 %) 38.6 L MCV (80.0 - 94.0 FL) 95.1 H MCH (27.0 - 31.0 PG) 31.5 H RDW (11.5 - 14.5 %) 14.2 Plt Count (130 - 400 /CUMM) 114 L MPV (7.4 - 10.4 FL) 9.4 Gran % (42.2 - 75.2 %) 57.6 Lymphocytes % (20.5 - 51.1 %) 29.0 Monocytes % (1.7 - 9.3 %) 10.6 H Eosinophils % (0 - 5 %) 2.5 Basophils % (0.0 - 2.0 %) 0.3 Absolute Granulocytes (1.4 - 6.5 /CUMM) 5.2 Absolute Lymphocytes (1.2 - 3.4 /CUMM) 2.6 Absolute Monocytes (0.10 - 0.60 /CUMM) 1.0 H Absolute Eosinophils (0.0 - 0.7 /CUMM) 0.2 Absolute Basophils (0.0 - 0.2 /CUMM) 0 PUBS MCHC (33.0 - 37.0 G/DL) 33.2 Vital Signs Date Time Temp Pulse Resp B/P Pulse O2 O2 Flow FiO2 Ox Delivery Rate 09/10 0619 98.6 66 18 136/80 94 Room Air 09/094 62 09/09 2206 99.0 45 18 130/07 91 09/09 1404 98.1 65 18 125/74 94 Room Air
[2016-09-10 13:49] VITALS: BP 136/84
--- NOTE | 2016-09-10 14:03 | Patient Discharge Instructions ---
Discharge Instructions General Discharge Information You were seen/treated for: Acute pancreatitis Special Instructions: Please continue a full liquid diet for about 1 week, and then check with her primary care physician (Dr Barajas) when to advance diet. Please seek immediate medical attention if he develops increased stomach pain, fevers, or vomiting. Please follow-up with her primary care physician within one week Please hold off on the cholesterol medication until you see your primary care physician (Dr Barajas) Diet Recommended Diet: Full Liquids, Low Fat Activity Full Activity/No Limits: Yes Acute Coronary Syndrome Inclusion Criteria At DC or during hospital stay patient has or had the following: ACS DIAGNOSIS No Discharge Core Measures Meds if any: Prescribed or Continued at Discharge Meds if any: NOT Prescribed or Continued at Discharge Congestive Heart Failure Inclusion Criteria At DC or during hospital stay patient has or had the following: CHF DIAGNOSIS No Discharge Core Measures Meds if any: Prescribed or Continued at Discharge Meds if any: NOT Prescribed or Continued at Discharge Cerebrovascular accident Inclusion Criteria At DC or during hospital stay patient has or had the following: CVA/TIA Diagnosis No Discharge Core Measures Meds if any: Prescribed or Continued at Discharge Meds if any: NOT Prescribed or Continued at Discharge Venous thromboembolism Inclusion Criteria VTE Diagnosis No VTE Type NONE VTE Confirmed by (Test) NONE Discharge Core Measures - Per Current guidelines, there needs to be overlap - treatment for the first 5 days of Warfarin therapy. - If discharged on Warfarin prior to 5 days of - overlap therapy, the patient will need to be - assessed for post discharge needs including - *Post discharge parental anticoagulation - *Warfarin and/or parental anticoagulation education - *Follow up date to check INR post discharge At least 5 days overlap therapy as Inpatient No Meds if any: Prescribed or Continued at Discharge Note: Overlap Therapy is Warfarin and Anticoagulant Meds if any: NOT Prescribed or Continued at Discharge
--- NOTE | 2016-09-29 15:02 | Discharge Summary ---
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 Work up in the ED showed elevated amylase and lipase and an evidence of pancreatitis in the Abdominal CT scan. 1. Pancreatitis Patient seldom drinks and is nonsmoker. CAT scan suggested acute pancreatitis without evidence of gallstones. Ultrasound right upper quadrant confirmed no gallstones or dilated CBD. This was his first episode of acute pancreatitis without obvious cause. His symptoms improved with treatment on pancreatitis protocol includg nothing by mouth and IV fluids. 2. Dyslipidemia Statins held for elevated LFTs. he must have a repeat liver function test as outpatient and his statin may be then resumed as outpatient. Allergies: Coded Allergies: No Known Allergies (09/07/16) Significant Procedures: CAT scan abdomen and pelvis IMPRESSION: 1. CT findings suspicious for acute pancreatitis. Clinical and laboratory correlation recommended. No gross evidence of choledocholithiasis. Evaluation of the pancreatic parenchyma is limited without intravenous contrast enhancement. 2. Nonspecific low-attenuation right hepatic lesion may represent a small cyst. It is too small to be accurately characterized. 3. Small hiatal hernia. Left inguinal hernia containing loop of distal descending colon. No evidence of strangulation. 4. Probable bone hemangioma right posterior iliac bone. Lytic bony lesion cannot be entirely excluded. Disposition Summary Disposition Principal Diagnosis: Acute pancreatitis of no clear etiology Additional Diagnosis: elevated LFTs Discharge Disposition: home or self care Discharge Instructions General Discharge Information Code Status: Full Code Patient's Diet: low-fat diet Patient's Activity: as tolerated Follow-Up Instructions/Appts: Follow-up liver function test in 2 weeks. Medications at Discharge Discharge Medications: Stop taking the following medications: Atorvastatin Calcium (Atorvastatin Calcium) 20 MG TABLET ORAL DAILY Qty = 90 Continue taking these medications: Omeprazole (Omeprazole) 20 MG CAPSULE.DR Smart Capsule ORAL DAILY Qty = 90 Comments: PROTONIX IV GIVEN 09/10/16 0800AM Aspirin (Ecotrin*) 81 MG TABLET.DR Smart Tablet ORAL DAILY Comments: NOT GIVEN IN HOSPITAL Gluc 2KCL/Chondr/Miguel Hy/Hy AC (Glucosamine & Chondroitin Cap) (Unknown Strength ) CAPSULE 1 Tablet ORAL TWICE DAILY Comments: NOT GIVEN IN HOSPITAL Ascorbic Acid (Vitamin C) (Unknown Strength) TABLET 1 Tablet ORAL DAILY Comments: NOT GIVEN IN HOSPITAL Calcium Carbonate/Vitamin D3 (Calcium 500 + D Tablet) (Unknown Strength) TABLET 1 Tablet ORAL DAILY Comments: NOT GIVEN IN HOSPITAL Multivitamin (Daily Multiple Vitamin) 1 EACH TABLET 1 Tablet ORAL DAILY Comments: NOT GIVEN IN HOSPITAL Copies To: NIGHAT DELONG,JUAN Marmolejo Attending MD Review Statement Documenting Attending: RONNIE PEREIRA MD
[2016-10-28] MEDS ORDERED: ATORVASTATIN CA10 M1 PO (08:00)
== END 2016-09-10 15:25 | DRG 440 ==
LOC: ENRESERVTM → ENRESERVDT → ERH 17:14 → 2NB 21:03 → ERHI 21:03 → 2NB 21:03
PROVIDERS: Internal Medicine; Physician Assistant Medical; Student in an Organized Health Care Education/Training Program; ADMIT Internal Medicine
DX: K85.90 Acute pancreatitis without necrosis or infection, unspecified (principal); K22.70 Barrett's esophagus without dysplasia; K21.9 Gastro-esophageal reflux disease without esophagitis; G51.0 Bell's palsy; E78.5 Hyperlipidemia, unspecified; M85.80 Other specified disorders of bone density and structure, unspecified site
CPT/HCPCS: 2NBSP; ERO; 36415; 74176; 82436; 93005; 93010; 96374; 96375; J1650; J2405; J3490; J7120

== ENCOUNTER → 2016-10-29 | Day surgery (SDC) | payer OTHER, MEDICARE ==
[~2016-10-29] VITALS: Ht 180.3 cm; Wt 76.2 kg
[~2016-10-29] MED LIST: ASPIRIN EC81 M1 PO; ATORVASTATIN CA10 M1 PO; ATORVASTATIN CA20 M1 PO; CALCIUM 500 +1 EAC5 PO; DAILY MULTIPLE1 EACH PO; GLUCOSAMINE &1 EAC1 PO; OMEPRAZOLE20 M2 PO; VITAMIN C250 M3 PO
--- NOTE | 2016-11-01 14:28 | Operative Report ---
Operative/Inv Procedure Report Surgery Date: 10/29/16 Name of Procedure: Laparoscopic cholecystectomy and Laparoscopic preperitoneal mesh repair of left inguinal hernia Pre-Operative Diagnosis: Symptomatic gallstones, (gallstone pancreatitis) and left inguinal hernia Post-Operative Diagnosis: Same Estimated Blood Loss: scant Surgeon/Citrus Picker: ALONSO DELONG,YONI VAZQUEZ Anesthesia: general endotracheal tube Operative/Procedure Note Note: Patient was positioned supine. After successful induction of general anesthesia, the patient's abdomen was clipped, prepped and draped in the usual sterile fashion. Local anesthetic was injected at the top of the umbilicus and then a curved horizontal incision little over a centimeter was made there with a 15 blade and then deepened to the midline fascia which was incised vertically a little over a centimeter. Both sides were secured with 0 Vicryl stay sutures and then the thin peritoneal layer was entered, 10 mm Fernandez trocar inserted obliquely to the right, and the gas was turned on to 15 mm. After insufflation and repositioning to reverse Trendelenburg, 3 more dissecting 5 mm trochars were placed in the right subcostal area, first lateral, then mid-subcostal, then subxiphoid. The gallbladder fundus was grasped from the lateral port and retracted up over the edge of the liver, though initially limited by extensive adhesions mostly around the infundibulum from the pancreatitis, and then we dissected out the area of the triangle of Calot while retracting the infundibulum caudally / laterally. First the cystic duct was identified, isolated at the neck, clipped 3 times, divided after the second clip and then in similar fashion the cystic artery was identified medially, dissected and divided. Then the gallbladder was from the liver bed using cautery then lowered into an Endobag and removed through the umbilical incision. There was no obvious spillage of bile so we decided to proceed with hernia repair. The instruments and then the trochars were removed letting the gas escape, except we left one 5 mm trocar in, the subxiphoid one, pulling it back a little, to vent. The fascial incision was closed with a figure 8 Vicryl then the 3 skin incisions were closed with interrupted subcuticular 4-0 Monocryl. The inguinal and surrounding areas were already clipped prepped and draped in the usual sterile fashion. After injection of local anesthetic at the bottom of the umbilicus off the midline to the left, a 1 1/2 cm curved incision was made with a 15 blade, then deepened through Rosa's fascia, sweeping off the rectus sheath. A horizontal 1-1/2 cm incision was made between the fibers, elevating these edges with 0 Vicryl stay sutures. Then retracting the muscle laterally, clearing off the posterior rectus sheath, this space is developed down the midline to the pubis sequentially, with an S retractor, a peanut dissector, then the balloon-camera device, inflating it 30-40 pumps while watching how it opens up the space, keeping the epigastrics up. The balloon is then replaced with a 10 mm Fernandez trocar, inserted, shortened, and secured with the stay sutures, gas turned on to 12 not 15 mm. Then two 5 mm trochars are inserted in the midline just below the camera, spaced by approximately 3 cm. Using mostly blunt dissection with peanuts to define the anatomy, first Aman's ligament is swept off medially, checking the medial spaces, direct and femoral. There were no hernias there. Then briefly skipping over the area of the iliac fat pad, we developed the iliopubic tract out laterally to the iliac crest. Then we returned to the area of the fat pad where the hernia sac and the cord structures are adherent, coursing up into an attenuated deep ring. The cord structures form a triangle with the vas approaching medially and the main vessels approaching laterally, with the apex at the deep ring. There was some preperitoneal fat up inside in front that was dragged down and out, helping identify the distal lip of the hernia sac, which is then carefully peeled off the cord structures, especially the vas. The cord is also from the underlying iliac fat. Once the hernia sac is from the cord structures down to the base of this "triangle," a Parietex sided mesh with the suture, is marked and stuffed down the camera trocar, then unfurled in a systematic fashion , first with the smaller leaflet passing behind the cord structures, until the flap covers the epigastrics, covering the deep ring, then the larger leaflet is released from the suture, double-covering the smaller one, but also extends laterally out to the iliac crest, medially over Aman's ligament, and superiorly towards the camera. There is a third part of the mesh, that covers the iliac fat pad like a skirt. The mesh was adjusted back and forth so that the keyhole is centered around the cord, lays flat and the edges are not curling. A trial run of letting the gas escape a little bit to see how the mesh would lay as the peritoneum comes back down is done, then when we're satisfied, we let rest of the gas escape, pulling out the instruments and trochars. The fascia is closed with a [id number] 0 Vicryl suture, tying the stay sutures on top. Then we closed the 4 skin incisions (the remaining gallbladder trocar) with interrupted 4-0 Monocryl, 3 for the umbilical, one each for the smaller ones, followed by Mastisol, Steri-Strips and Band-Aids. Overall estimated blood loss was minimal, lap and sponge counts were correct, wound expectancy was clean, IV fluids crystalloid, complications none, patient tolerated the procedure well, did not significantly benson during extubation and was returned to the recovery room in satisfactory condition.
== END ==
LOC: STS 03:08
DX: K40.90 Unilateral inguinal hernia, without obstruction or gangrene, not specified as recurrent (principal); K80.10 Calculus of gallbladder with chronic cholecystitis without obstruction; K85.10 Biliary acute pancreatitis without necrosis or infection; K21.9 Gastro-esophageal reflux disease without esophagitis; E78.5 Hyperlipidemia, unspecified
CPT/HCPCS: 88304; 88305; C1781; C9399; J0690; J2250